=== PATIENT | male | born 1990 | race Caucasian/White ===

== ENCOUNTER 2024-03-16 17:13 | Inpatient (IN) | payer OTHER ==
[2024-03-16] MEDS ORDERED: ACETAMINOPHEN TAB 325 MG TAB PO PRN (20:41)
[2024-03-16] MEDS ORDERED: MAG HYDROX/AL HYDROX/SIMETH 355 ML BOTTLE PO PRN (20:41)
[2024-03-16] MEDS ORDERED: MAGNESIUM HYDROXIDE 2,400 MG/30 ML CUP PO PRN (20:41)
[2024-03-16] MEDS ORDERED: IBUPROFEN 600 MG TAB PO PRN (20:41)
[2024-03-16] MEDS ORDERED: LORazepam 2 MG/ML INJ IM PRN (20:41)
[2024-03-16] MEDS ORDERED: HALOPERIDOL LACTATE 5 MG/ML 1 ML VIAL IM PRN (20:41)
[2024-03-16] MEDS ORDERED: haloperidoL 5 MG TAB PO PRN (20:41)
[2024-03-16] MEDS: QUEtiapine 100 MG TAB PO PRN (23:06)
--- NOTE | 2024-03-17 02:57 | P.PN ---
Progress Note - Text Progress Note Date: 03/16/24 patient was upset about waking him up at 1130 pm and refused to participate in evaluation
[2024-03-17] MEDS: NICOTINE 14MG/24HR PATCH TRANSDERM SCH (08:26)
[2024-03-17 13:17] LABS: Basophils % (A) 0 %; Eosinophils # (A) 0.1 k/uL (0-0.7); Eosinophils % (A) 1 %; HCT 46.6 % (39.0-53.0); HGB 15.1 gm/dL (13.0-17.5); Lymphocytes % (A) 22 %; MCH 29.2 pg (25.0-35.0); MCHC 32.3 g/dL (31.0-37.0); MCV 90.3 fL (80.0-100.0); Mean Platelet Volume 7.6; Monocytes # (A) 0.4 k/uL (0-1.0); Monocytes % (A) 4 %; Neutrophils # (A) 6.8 k/uL (1.3-7.7); Neutrophils % (A) 72 %; Platelet Count 306 k/uL (150-450); RBC 5.16 m/uL (4.30-5.90); RDW 12.7 % (11.5-15.5); WBC 9.5 k/uL (3.8-10.6)
[2024-03-17 13:37] LABS: ALT 27 U/L (4-49); AST 30 U/L (17-59); African American GFR (CKD) >90 (>60 ml/min/1.73 sqM); Albumin 4.8 g/dL (3.5-5.0); Alkaline Phosphatase 98 U/L (38-126); Anion Gap 8 mmol/L; Blood Urea Nitrogen 15 mg/dL (9-20); Calcium 9.6 mg/dL (8.4-10.2); Carbon Dioxide 26 mmol/L (22-30); Chloride 107 mmol/L (98-107); Glucose 115 mg/dL (74-99); Non-African American GFR(CKD) 89 (>60 ml/min/1.73 sqM); Potassium 4.3 mmol/L (3.5-5.1); Sodium 141 mmol/L (137-145)
--- NOTE | 2024-03-17 17:07 | P.HP ---
Psychiatric H&P - . H&P Date: 03/17/24 History & Physical: Allergies Allergy/AdvReac Type Severity Reaction Status Date / Time No Known Allergies Allergy Verified 03/16/24 20:41 Vital Signs Temp 97.7 F 03/17/24 13:22 Pulse 112 H 03/17/24 13:22 Resp 18 03/17/24 13:22 BP 137/77 03/17/24 13:22 Pulse Ox 98 03/17/24 13:22 FiO2 Intake & Output 03/16/24 03/17/24 03/17/24 18:59 06:59 18:59 Weight 88.4 kg Laboratory Last Values WBC 9.5 k/uL (3.8-10.6) 03/17/24 13:02 RBC 5.16 m/uL (4.30-5.90) 03/17/24 13:02 Hgb 15.1 gm/dL (13.0-17.5) 03/17/24 13:02 Hct 46.6 % (39.0-53.0) 03/17/24 13:02 MCV 90.3 fL (80.0-100.0) 03/17/24 13:02 MCH 29.2 pg (25.0-35.0) 03/17/24 13:02 MCHC 32.3 g/dL (31.0-37.0) 03/17/24 13:02 RDW 12.7 % (11.5-15.5) 03/17/24 13:02 Plt Count 306 k/uL (150-450) 03/17/24 13:02 MPV 7.6 03/17/24 13:02 Neutrophils % 72 % 03/17/24 13:02 Lymphocytes % 22 % 03/17/24 13:02 Monocytes % 4 % 03/17/24 13:02 Eosinophils % 1 % 03/17/24 13:02 Basophils % 0 % 03/17/24 13:02 Neutrophils # 6.8 k/uL (1.3-7.7) 03/17/24 13:02 Lymphocytes # 2.0 k/uL (1.0-4.8) 03/17/24 13:02 Monocytes # 0.4 k/uL (0-1.0) 03/17/24 13:02 Eosinophils # 0.1 k/uL (0-0.7) 03/17/24 13:02 Basophils # 0.0 k/uL (0-0.2) 03/17/24 13:02 Sodium 141 mmol/L (137-145) 03/17/24 13:02 Potassium 4.3 mmol/L (3.5-5.1) 03/17/24 13:02 Chloride 107 mmol/L (98-107) 03/17/24 13:02 Carbon Dioxide 26 mmol/L (22-30) 03/17/24 13:02 Anion Gap 8 mmol/L 03/17/24 13:02 BUN 15 mg/dL (9-20) 03/17/24 13:02 Creatinine 1.10 mg/dL (0.66-1.25) 03/17/24 13:02 Est GFR (CKD-EPI)AfAm >90 (>60 ml/min/1.73 sqM) 03/17/24 13:02 Est GFR (CKD-EPI)NonAf 89 (>60 ml/min/1.73 sqM) 03/17/24 13:02 Glucose 115 mg/dL (74-99) H 03/17/24 13:02 Calcium 9.6 mg/dL (8.4-10.2) 03/17/24 13:02 Total Bilirubin 1.0 mg/dL (0.2-1.3) 03/17/24 13:02 AST 30 U/L (17-59) 03/17/24 13:02 ALT 27 U/L (4-49) 03/17/24 13:02 Alkaline Phosphatase 98 U/L (38-126) 03/17/24 13:02 Total Protein 8.0 g/dL (6.3-8.2) 03/17/24 13:02 Albumin 4.8 g/dL (3.5-5.0) 03/17/24 13:02 TSH 0.764 mIU/L (0.465-4.680) 03/17/24 13:02 03/17/24 16:46 Psychiatric Evaluation Identifying Data: Mr. Krishnamurthy is 34 years old, WM, single, who lives in [place], [place] in an apartment by himself. Chief Complaint: I am in the process of eviction History of Psychiatric Illness- The patient noted that he is in the process of eviction. He noted that he in the process of being eviction. The patient noted that he is not able to pay rent. 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 He had worked there for two weeks. The patient noted that he has had 8 jobs in past 1 year. The patient indicated that he does not get paid enough or being mistreated by employee or has issues with fellow employees. The patient noted that he came with a co-worker to the hospital because they were worried about his safety. This conclusion was arrived because he stated, I am getting kicked out of the apartment, I guess this is the end. The police were called; however, the police went away when the patient decided to come to the hospital on his own with a coworker. He was taken to [facility] in [place] and then was transferred here. The patient reported noted that he started noticing symptoms of sadness, anxiety, worrying a lot, loss of sleep, lethargy, fatigue, self-neglect, worthlessness, hopelessness for last 2 months. He denied any thoughts of hurting self-harm or harm to other people. The patient noted that he did feel that God is against him. The patient noted that his psychiatric issues started when his mother at age 15. His best friend at age 18. He started feeling around that period. The patient received counseling when his mother. Around age 22 he went on top of the building and wanted to jump off the building to kill himself. He was brought down and was taken to the hospital by EMS to the hospital. He was in the hospital for 10 days. He does not remember the name of the medication given to him at the discharge. He has been in the hospitals off and on since then. Past Psychiatric History: As stated above. Past Medication History: Xanax. He was given antidepressant but does not remember the name Leading questions: The patient admitted to Depression and Anxiety. Denied SI or HI. Denied symptoms consistent with psychosis Drugs and alcohol history: The noted that he has used [place]. Has not done for couple of months. No other drugs. He drinks Alcohol socially. Tobacco use: None. Past Medical history: Family History of Psychiatric Disorder: Sister cuts herself Denied any h/o Suicide or Homicide. Social History and Family History: The patient born and raised in [place], [place]. he grew-up with 7 siblings. He finished GED. 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 OTC: None. Allergies: None Objective: MSE: Alert and attentive. Orientation times three Dressed and Groomed: Appropriately. Pleasant and cooperative. Psychomotor Activity: Normal. Speech: Normal in tone, quality, and quantity. Mood: Depressed, and anxious. Affect: Tense, worried, anxious. SI or HI: None. Perceptual disturbance: None. Thought Content: Paranoid ideations. Thought Process: Normal. Cognition: Intact Judgment and Insight: Fair AIMS: Normal Labs: Non available, ordered. Diagnosis: Major Depressive Disorder, severe, recurrent with paranoia Plan and Recommendations: Zoloft 50 mg po daily. SEroquel 50 mg at bedtime.. Monitor MS and side effects of medications and adjust medications accordingly. Provide supportive psychotherapy and psychoeducation. The patient to see a therapist on a regular basis once a week/ attend [facility]. CBC with Diff, CMP, TSH, Lipid Profile, HbA1c, EKG. Medication Consent with explanation of risk/benefits and side effects: Explained and obtained. 03/17/24 16:55
[2024-03-17 20:26] LABS: Chol/HDL Ratio 4.68 Ratio
[2024-03-17] MEDS: QUEtiapine 50 MG TAB PO SCH (21:33)
--- NOTE | 2024-03-18 07:05 | P.MDCNMH ---
History of Present Illness H&P Date: 03/18/24 Chief Complaint: Medical eval 34-year-old male no significant past medical history Patient was brought into the hospital by coworker for evaluation of depression and suicidal ideation, patient has been going through difficult financial times risk of eviction from his place and losing his job his coworkers noticed some changes in behavior was worried about him and decided to call police to help bring him to the hospital for evaluation. Patient denies any suicidal ideation denies any hallucinations however he is concerned regarding chest pain shortness of breath he reports that he used to be running and active and now just walking make him short of breath. Denies any coughing wheezing denies any chest pain denies any fevers or chills denies any leg swelling denies any history of blood clots Patient denies any tobacco smoking illicit drugs or heavy alcohol review of systems Pertinent positives as noted in HPI. All other systems were reviewed and are negative on exam Constitutional: No acute distress, Eyes: Anicteric sclerae, moist conjunctiva, Pupils equal round reactive to light Lungs: Clear to auscultation Clear to percussion Normal respiratory effort, no accessory muscle use Cardiovascular: Heart regular in rate and rhythm, No murmurs, gallops, or rubs No peripheral edema Abdominal: Soft Nontender, no guarding, rebound or rigidity Abdomen moving with respiration Normoactive bowel sounds Extremities: No digital cyanosis No clubbing Pedal pulses intact and symmetrical Radial pulses intact and symmetrical No calf tenderness Psychiatric: Alert and oriented to person, place and time Neuro Muscles Strength 5/5 in all 4 extremities Sensation to light touch grossly present throughout Cranial nerves II-XII grossly intact Past Medical History Past Medical History: No Reported History History of Any Multi-Drug Resistant Organisms: None Reported Past Surgical History: No Surgical Hx Reported Past Anesthesia/Blood Transfusion Reactions: No Reported Reaction Past Psychological History: Anxiety, Depression Smoking Status: Never smoker Medications and Allergies Allergies Allergy/AdvReac Type Severity Reaction Status Date / Time No Known Allergies Allergy Verified 03/16/24 20:41 Physical Exam Vitals: Vital Signs Temp Pulse Resp BP BP Pulse Ox 03/17/24 13:22 97.7 F 112 H 18 137/77 98 03/17/24 07:34 98.0 F 65 16 102/58 100 Cranial Nerve Examination - Cranial Nerves Cranial Nerve II- Optic: Intact Cranial Nerve III- Oculomotor: Intact Cranial Nerve IV- Trochlear: Intact Cranial Nerve V- Trigeminal: Intact Cranial Nerve - Abducens: Intact Cranial Nerve VII- Facial: Intact Cranial Nerve VIII- Auditory: Intact Cranial Nerve IX- Glossopharyngeal: Intact Cranial Nerve X- Vagus: Intact Cranial Nerve XI- Accessory: Intact Cranial Nerve XII- Hypoglossal: Intact Results CBC & Chem 7: 03/17/24 13:02 03/17/24 13:02 Labs: Abnormal Lab Results - Last 24 Hours (Table) 03/17/24 Range/Units 13:02 Glucose 115 H (74-99) mg/dL Cholesterol 252.00 H (0.00-200.00) mg/dL LDL Cholesterol, Calc 176.0 H (0.0-131.0) mg/dL Assessment and Plan Assessment: Depression and anxiety Management per psych difficulty breathing on physical exam ,and checking vital signs , no evidence of any pulmonary issues check CXR, if unremarkable , then consider anxiety in the differential . Chest x-ray was reviewed no acute cardiopulmonary process EKG reviewed normal sinus rhythm no acute ST changes Labs reviewed unremarkable White count 9.5 hemoglobin 15 Sodium 141 potassium 4.3 BUN 15 creatinine 1 TSH unremarkable 0.76 Hyperlipidemia Total cholesterol 252 LDL 176 Patient counseled regarding lifestyle modification Consider obtaining fasting lipid panel Follow-up outpatient with PCP Patient respiratory symptoms most likely secondary to anxiety consider optimizing his psych medications Patient otherwise stable from medical standpoint Thank you for this consultation
[2024-03-18] MEDS: SERTRALINE 50 MG TAB PO SCH (09:09)
--- NOTE | 2024-03-18 13:33 | XR ---
EXAMINATION TYPE: XR chest 1V portable DATE OF EXAM: 03/18/2024 COMPARISON: NONE HISTORY: Chest pain TECHNIQUE: Single frontal view of the chest is obtained. FINDINGS: There is no focal air space opacity, pleural effusion, or pneumothorax seen. The cardiac silhouette size is within normal limits. The osseous structures are intact. IMPRESSION: 1. No acute process.
[2024-03-18] MEDS: LORazepam 1 MG TAB PO PRN (20:23)
--- NOTE | 2024-03-18 21:25 | P.PN ---
Progress Note - Text Progress Note Date: 03/18/24 In-Patient Follow-up Chief Complaint: I am ok, I found out the cause Subjective: The patient declined taking medications. he stated, : I believe in power of Mansoor Daily. I believe, I will be healed by Mansoor. He thinks medication only remove the symptoms but not the cause. The patient noted that he may be getting evicted and has no place to go and cant find a job. He thinks if he can solve these issues then he will get better. He believes that he would have had a job, if not admitted to the hospital. He noted that one of the friends, who came to help him owns businesses and has restaurants. He could have got him a job. The patient was explained that he has been getting depressed for past three months. He had noted that he was very depressed and was neglecting himself and staying home feeling worthless and hopeless. He saw no lights at the end of the tunnel and finally decided to end his life. He was encouraged to take medications to address severe depression, the patient firmly declined. He noted that he has improved, he does not feel depressed and is no more suicidal or homicidal. On the unit, the patient has been attending groups. His interaction with staff and peers is good. Leading questions: The patient admitted to mild Depression and Anxiety as a r esult of his situation. Denied SI or HI. Denied symptoms consistent with psychosis Sleep and Appetite: Fair. Interim History: Behavioral Changes: PRN meds/isolation/restraints/ change in status: None. Change in medical condition: No change. Change in medications: None. Side effects from Medications: N/A Objective- MSE: Alert and attentive. Orientation times three. Dressed and Groomed: Appropriately. Pleasant and cooperative. Psychomotor Activity: Normal. Speech: Normal in tone, quality, and quantity. Mood: I am fine Affect: Irritable. SI or HI: None. Perceptual disturbance: None. Thought Content: No paranoia or other delusional thinking noted. Thought Process: Normal. Cognition: Intact Judgment and Insight: Fair AIMS: Normal. Labs: No new labs. Diagnosis: No change. Plan and recommendation: : Encouraged patient to take medications. Monitor MS and side effects of medications and adjust medications accordingly. Provide supportive psychotherapy. The patient provided psychoeducation. The patient provided Substance abuse counseling. Smoke cessation therapy. The patient to continue attending the [facility]. Individual supportive therapy provided.
[2024-03-19 10:14] VITALS: RESP 16
--- NOTE | 2024-03-19 20:28 | P.PN ---
Progress Note - Text Progress Note Date: 03/19/24 In-Patient Follow-up Chief Complaint: I am doing good Subjective: The patient noted that he has been doing good. He stated that his friend Tiara will help him with finding a job. He has worked with her in the past. He also noted that he is taking Seroquel to help him sleep. He thinks it is helping him Discussed again about taking Zoloft. Explained him about depression and anxiety. He has been using Ativan for anxiety. Explained patient the risk/benefits and side effects. Explained the potential for tolerance and dependence. Encouraged him to take Zoloft explaining the antidepressant and antianxiety properties of Zoloft. The patient did say he would consider. The patient denied feeling depressed. He is still concern about finances and living situation. No side effects reported. The patient has been attending groups and interacting with staff and peers fine. Leading questions: The patient denied Depression. Admitted to Anxiety. Denied SI or HI. Denied symptoms consistent with psychosis Sleep and Appetite: Fine. Interim History: Behavioral Changes: PRN meds/isolation/restraints/ change in status: None. Change in medical condition: No change. Change in medications: No change. Side effects from Medications: None. Objective- MSE: Alert and attentive. Orientation times three. Dressed and Groomed: Appropriately. Pleasant and cooperative. Psychomotor Activity: Normal. Speech: Normal in tone, quality, and quantity. Mood: Anxious. Affect: Appropriate SI or HI: None. Perceptual disturbance: None. Thought Content: No paranoia or other delusional thinking noted. Thought Process: Normal. Cognition: Intact Judgment and Insight: Good AIMS: Normal. Labs: Reviewed with patients. Diagnosis: No change. Plan and recommendation: Continue current Medications. Monitor MS and side effects of medications and adjust medications accordingly. Provide supportive psychotherapy. The patient provided psychoeducation. The patient provided Substance abuse counseling. Smoke cessation therapy. The patient to continue attending the [facility] activities. Medication Consent with explanation of risk/benefits and side effects: Explained and obtained.
[2024-03-20 12:24] VITALS: BP 120/56; PULSE 78; TEMP 98
--- NOTE | 2024-03-20 17:28 | P.DS ---
Providers Date of admission: 03/16/24 21:44 Expected date of discharge: 03/20/24 Attending physician: Lucien Redd MD Consults: 03/16/24 20:41 Consult Physician Routine Consulting Provider: Maty Pedro Consult Reason/Comments: medical management Do you want consulting provider notified?: Yes Primary care physician: Stated None - Discharge Diagnosis(es) (1) Major depressive disorder, recurrent Current Visit: Yes Status: Acute Priority: High (2) Suicidal thoughts Current Visit: Yes Status: Acute Priority: High Patient Condition at Discharge: Stable Plan - Discharge Summary Discharge Rx Participant: Yes New Discharge Prescriptions: New QUEtiapine [SEROquel] 50 mg PO HS 15 Days #15 tab Sertraline [Zoloft] 50 mg PO DAILY 15 Days #15 tab Discharge Medication List QUEtiapine [SEROquel] 50 mg PO HS 15 Days #15 tab 03/20/24 [Rx] Sertraline [Zoloft] 50 mg PO DAILY 15 Days #15 tab 03/20/24 [Rx] Follow up Appointment(s)/Referral(s): ISELA Salazar [facility] [Other] - 1 Week (03/25/24 @ 10:00 am with Training Mgr) [facility] [Other] - 1 Week Patient Instructions/Handouts: How to Stop Smoking (DC), Psychotic Disorder (DC) Activity/Diet/Wound Care/Special Instructions: Avoid the use of street drugs and alcohol. Take all medications as prescribed. When you are in need of refills on your medications, please contact your medical provider and/or outpatient psychiatrist/provider to have this done. Please go to your scheduled outpatient appointment for aftercare treatment. If symptoms return or become worse, call the crisis line at and/or go to the nearest emergency room for evaluation. National Suicide Hotline 988 Discharge Disposition: HOME SELF-CARE
== END 2024-03-20 17:18 | disposition home or self-care (01) | DRG 885 ==
LOC: 3MHU 21:44
PROVIDERS: ADMIT Psychiatry & Neurology Psychiatry; ATTEND Psychiatry & Neurology Psychiatry
DX: F33.3 Major depressive disorder, recurrent, severe with psychotic symptoms (principal); R45.851 Suicidal ideations; F41.9 Anxiety disorder, unspecified; E78.5 Hyperlipidemia, unspecified; Z56.0 Unemployment, unspecified; Z59.811 Housing instability, housed, with risk of homelessness; Z62.898 Other specified problems related to upbringing; Z81.8 Family history of other mental and behavioral disorders
CPT/HCPCS: 71045; 80053; 80061; 83036; 84443; 85025; 93005